=== PATIENT | female | born 2000 | race Caucasian/White ===

== ENCOUNTER 2021-04-08 14:01 | Emergency (ER) | payer OTHER, SELFPAY ==
[2021-04-08 14:28] VITALS: BP 122/83; PULSE 86; RESP 16; TEMP 36.8; O2SAT 100; BMI 24.2
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
[2021-04-08 16:11] VITALS: BP 133/91; PULSE 70; RESP 20; TEMP 36.7; O2SAT 100
== END 2021-04-08 16:29 | disposition home or self-care (01) ==
PROVIDERS: Emergency Provider Emergency Medicine
DX: S06.0X0A Concussion without loss of consciousness, initial encounter (principal); V47.5XXA Car driver injured in collision with fixed or stationary object in traffic accident, initial encounter; Y93.9 Activity, unspecified; Y92.410 Unspecified street and highway as the place of occurrence of the external cause; Y99.9 Unspecified external cause status; Z79.899 Other long term (current) drug therapy
CPT/HCPCS: 99283; 99284